=== PATIENT | male | born 1980 | race African-American/Black ===

== ENCOUNTER 2021-08-18 09:38 | Emergency (ER) | payer OTHER ==
[2021-08-18 09:51] VITALS: BP 131/78
--- NOTE | 2021-08-18 10:41 | ED Physician Documentation ---
PD HPI LOWER EXT INJURY - Stated complaint Stated Complaint: KNEE PAIN - Chief complaint Chief Complaint: Ext Problem - History obtained from History obtained from: Patient - History of Present Illness PD HPI LOW EXT INJURY LOCATION: Left, Knee Type of injury: Other (onset pain after doing normal exercising. Has feeling of unreliable, as if it might give out. No locking nor clicking. Hurts more with up/down steps and walking. Has swelling of the knee. No redness. No skin sores.). No: Fall, Twist, Blunt / blow Timing - onset: Yesterday Timing - duration: Days (2) Timing - details: Abrupt onset, Still present Improved by: Rest Worsened by: Moving, Palpating, Other (steps and extension) Associated symptoms: Swelling. No: Weakness, Numbness, Discolored Similar symptoms before: Has not had sx before Review of Systems Constitutional: denies: Fever, Chills, Myalgias Nose: denies: Rhinorrhea / runny nose, Congestion Throat: denies: Sore throat Respiratory: denies: Cough GI: denies: Abdominal Pain, Nausea, Vomiting, Diarrhea Skin: denies: Rash, Lesions, Abrasion (s), Laceration (s) Neurologic: denies: Focal weakness, Numbness PD PAST MEDICAL HISTORY - Past Medical History Cardiovascular: None Respiratory: None Endocrine/Autoimmune: None Musculoskeletal: None - Present Medications Home Medications: Ambulatory Orders Medication Instructions Recorded Confirmed HYDROcod/ACETAM 5/325 [[place] 5/325] 1 ea PO Q6H PRN #15 tablet 08/18/21 Naproxen 250 mg PO TID 7 Days #20 tablet 08/18/21 - Allergies Allergies/Adverse Reactions: Allergies Allergy/AdvReac Type Severity Reaction Status Date / Time No Known Drug Allergies Allergy Verified 08/18/21 09:51 PD ED PE NORMAL - Vitals Vital signs reviewed: Yes - General General: Alert and oriented X 3, No acute distress (protective of movement of left knee), Well developed/nourished - Derm Derm: Normal color, Warm and dry, No rash - Extremities Extremities: No edema, No calf tenderness / cord, Other (left knee with mild effusion. No redness nor warmth. Tender medial and popliteal. Hamstrings not tender. Cruciate and collateral testing strong and not painful. No clicking nor locking on passive flex/extension. ) - Neuro Neuro: Alert and oriented X 3, No motor deficit, No sensory deficit Results - Vitals Vitals: Oxygen O2 Source Room air - Rads (name of study) left knee Radiology: Prelim report reviewed (no fractures; moderate joint effusion. ), See rad report PD MEDICAL DECISION MAKING - ED course Complexity details: reviewed results, considered differential (symptoms and exam most c/w meniscal injury and swelling/effusion. ), d/w patient Departure - Departure Disposition: 01 Home, Self Care Clinical Impression: Knee pain, acute, Acute meniscal injury of knee Condition: Stable Instructions: ED Meniscal Injury Knee Poss Follow-Up: ADRI ROJAS MD [Primary Care Provider] - Prescriptions: Naproxen 250 mg PO TID 7 Days #20 tablet HYDROcod/ACETAM 5/325 [[place] 5/325] 1 ea PO Q6H PRN #15 tablet PRN Reason: Pain Comments: This sounds likely to be a cartilage/meniscal injury with inflammation. Treat this with a knee brace when up and around. He can have it off with rested. Crutches as needed for partial to no weightbearing based on comfort. Ice and elevate the knee often today and tomorrow. Minimal walking and standing for the next 5 to 6 days until follow-up. Use naproxen anti-inflammatories 3 times daily with food for the next week. To that add Tylenol or hydrocodone/acetaminophen every 4-6 hours if needed for worse pain. Follow-up with your primary care next week for further evaluation and potential PT on that knee as well or any other work-up. They could potentially have you see [place]oped[place] I am prescribing a short course of narcotic pain medication for you. These are potentially dangerous and addictive medications that should be used carefully. These medications may constipate you. Take an [id number] stool softener such as docusate twice daily with plenty of water while taking these medications. If you go 24 hours without a bowel movement, take [id number]-mryscdn MiraLAX, per package instructions. Do not drink or drive while taking these medications. If you received narcotic or sedating medications while in the emergency department do not drive for 24 hours. Store this medication in a safe, secure place and out of reach of children. It is a violation of federal law to give or sell this medication to another person or to use in a manner other than prescribed. The ED will not refill narcotic prescriptions, including prescriptions lost or stolen. You can dispose of unwanted medications at the [facility]'s office or at several pharmacies such as [facility]. Forms: Activity restrictions Discharge Date/Time: 08/18/21 11:34
--- NOTE | 2021-08-18 10:45 | XRAY Report ---
PROCEDURE: Knee 4 View LT INDICATIONS: Trauma TECHNIQUE: 3 views of the left knee(s) were acquired. COMPARISON: None. FINDINGS: Bones: No fractures or dislocations. No suspicious bony lesions. Soft tissues: Moderate joint effusion. No suspicious soft tissue calcifications. IMPRESSION: Moderate to joint effusion without fracture or foreign body Reviewed by: Ernie Mg MD on 08/18/2021 9:43 AM NI Approved by: Ernie Mg MD on 08/18/2021 9:43 AM [facility] Station ID: [id number]
[2021-08-18] MEDS ORDERED: ACETAMINOPHEN 325 MG TABLET PO STA (11:02)
[2021-08-18] MEDS ORDERED: IBUPROFEN 600 MG TABLET PO STA (11:02)
== END 2021-08-18 11:34 | disposition home or self-care (01) ==
LOC: ED 09:38
DX: S83.8X9A Sprain of other specified parts of unspecified knee, initial encounter (principal); S89.92XA Unspecified injury of left lower leg, initial encounter; X58.XXXA Exposure to other specified factors, initial encounter; Y93.A9 Activity, other involving cardiorespiratory exercise
CPT/HCPCS: 73564; 99282; 99283; A9270

== ENCOUNTER 2022-01-10 13:44 | Outpatient (CLI) | payer OTHER ==
--- NOTE | 2022-01-12 09:29 | MRI Report ---
PROCEDURE: KNEE WO - RT INDICATIONS: RIGHT KNEE PAIN TECHNIQUE: Noncontrast sagittal PD fast spin echo and T2 fast spin echo with fat saturation, sagittal 3-D spoile d GE with fat saturation; coronal T1 spin echo and PD fast spin echo with fat saturation, and axial P D fast spin echo with fat saturation through the knee. COMPARISON: Left knee radiographs 08/18/2021. FINDINGS: Image quality: Excellent. Anterior cruciate ligament: Intact. Posterior cruciate ligament: Intact. Medial collateral ligament: Intact. Lateral collateral ligament: Intact. Medial meniscus: Intact. Lateral meniscus: Intact. Medial and lateral tendons: The semimembranosus tendon insertions appear intact. Visualized portion s of the pes anserinus tendons appear normal. The popliteus tendon appears intact. Iliotibial band appears normal. Anterior structures: There is mild patella mary jo and patellar tendinosis. The distal quadriceps tendo n is intact. 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 The tibial tubercle trochlear groove distance is within normal limits. Moderate edema is s een at the superolateral aspect of Hoffa's fat pad. Bones: No acute trabecular bone injury or fracture. Chronic traction cystic changes are seen in the central tibial plateau near the insertion of the posterior cruciate ligament and posterior root attac hment of the medial meniscus. Medial femorotibial cartilage: Mild cartilage thinning in the weightbearing portion of the medial co mpartment. Lateral femorotibial cartilage: Deep cartilage fissuring is seen in the central portion of the later al tibial plateau. Patellofemoral cartilage: Full-thickness cartilage defect is seen at the trochlear groove/medial fem oral trochlea measuring approximately mild surface irregularity is seen at the median ridge of the pa tella. Soft tissues: There is a small joint effusion. There is a trace medial popliteal cyst. The musculat ure surrounding the knee is normal in bulk. IMPRESSION: 1.Moderate edema in the superolateral aspect of Hoffa's fat pad can be seen in setting of lateral fem oral condyle and patellar tendon friction syndrome. 2.Mild patella mary jo. 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 The tibial tubercle-trochlear groove distance is within normal limits. 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 4.Cruciate and collateral ligaments are intact. No acute trabecular bone injury. No meniscal tear is seen to 5.Small joint effusion. Reviewed by: Shay Martinez MD on 01/12/2022 9:28 AM PST Approved by: Shay Martinez MD on 01/12/2022 9:28 AM PST Station ID: [id number]
== END 2022-01-10 13:45 | disposition home or self-care (01) ==
LOC: DI 13:44
PROVIDERS: ATTEND Family Medicine
DX: M94.261 Chondromalacia, right knee (principal); M25.461 Effusion, right knee